=== PATIENT | female | born 1980 | race Caucasian/White ===

== ENCOUNTER 2020-09-21 21:45 | Inpatient (IN) | payer MEDICAID ==
[~2020-09-21] VITALS: Ht 165.1 cm; Wt 125.7 kg
--- NOTE | 2020-09-21 22:30 | NUR ---
Pt is a difficult stick. Multiple attempts made by 2 nurses to establish iv access. IV ultrasound being attempted at this time.
[2020-09-21 22:44] LABS: BASOPHILS % (AUTO) 0.9 % (0.0-2.0); EOSINOPHILS # (AUTO) 0.2 K/uL (0.0-0.7); EOSINOPHILS % (AUTO) 3.8 % (0.0-7.0); HEMATOCRIT 37.9 % (31.2-41.9); HEMOGLOBIN 12.4 g/dL (10.9-14.3); LYMPHOCYTES # (AUTO) 1.8 K/uL (20.0-40.0); LYMPHOCYTES % (AUTO) 32.4 % (20.5-51.5); MEAN CORPUSCULAR HEMOGLOBIN 29.1 uug (24.7-32.8); MEAN CORPUSCULAR HGB CONC 33 g/dL (32.3-35.6); MEAN CORPUSCULAR VOLUME 88.9 fL (75.5-95.3); MONOCYTES # (AUTO) 0.5 K/uL (2.0-10.0); MONOCYTES % (AUTO) 8.7 % (0.0-11.0); NEUTROPHILS % (AUTO) 54.2 % (38.5-71.5); PLATELET COUNT (AUTO) 273 K/uL (179-408); RED BLOOD CELL COUNT(AUTO) 4.27 MIL/uL (3.63-4.92); WHITE BLOOD COUNT (AUTO) 5.5 K/uL (3.8-11.8)
[2020-09-21 22:51] LABS: CREATININE 0.8 mg/dL (0.6-1.3); POTASSIUM 3.6 mmol/L (3.5-5.1)
--- NOTE | 2020-09-21 22:57 | NUR ---
Notified radiology that patient is now ready to receive x-ray.
[2020-09-21 23:03] LABS: BILIRUBIN,DIRECT 0.2 mg/dL (0.0-0.2); BILIRUBIN,TOTAL 0.4 mg/dL (0.2-1.0); TOTAL PROTEIN, SERUM 7.1 g/dL (6.4-8.2)
[2020-09-21] MEDS ORDERED: FUROSEMIDE 40 MG/4 ML VIAL IV ONE (23:15)
[2020-09-21] MEDS ORDERED: FUROSEMIDE 40 MG/4 ML VIAL ONE (23:21)
[2020-09-21] MEDS ORDERED: FUROSEMIDE 20 MG/2 ML VIAL ONE (23:21)
--- NOTE | 2020-09-21 23:40 | NUR ---
Pt sleeping at this time. resp even and unlabored. NO acute distress noted.
--- NOTE | 2020-09-22 | NUR ---
Pt's nasal swab for covid testing dropped off to lab at this time.
--- NOTE | 2020-09-22 00:06 | NUR ---
Pt is currently receiving ultrasound of lower extremities. Visitor that she refers to as "street mom" is present in room as well.
--- NOTE | 2020-09-22 00:50 | NUR ---
NOtified charge nurse that the plan is to admit patient per ER physician.
[2020-09-22] MEDS ORDERED: MORPHINE SULFATE 4 MG/1 ML DISP.SYRIN IV ONE (01:00)
[2020-09-22] MEDS ORDERED: FURO-152 PO (01:06)
--- NOTE | 2020-09-22 01:33 | NUR ---
Notified [facility] (admiting group) of panel call. callisthenics instructor provider Jagdish Rosa NP notified.
--- NOTE | 2020-09-22 01:36 | NUR ---
Pt voided x4 unmeasured urine output.
[2020-09-22] MEDS ORDERED: ONDANSETRON 4 MG/2 ML VIAL IV PRN ×2 (02:00→02:45)
[2020-09-22] MEDS ORDERED: MORPHINE SULFATE 2 MG/1 ML DISP.SYRIN IV PRN (02:00)
[2020-09-22] MEDS ORDERED: HYDROCODONE/APAP 5-325MG TABLET PO PRN ×2 (02:00→02:45)
[2020-09-22] MEDS ORDERED: MAGNESIUM HYDROXIDE 30 ML LIQUID UDC PO PRN ×2 (02:00→02:45)
[2020-09-22] MEDS ORDERED: ENOXAPARIN SODIUM 40 MG/0.4 ML DISP.SYRIN SQ SCH (02:00)
[2020-09-22] MEDS ORDERED: ACETAMINOPHEN 325 MG TABLET PO PRN (02:00)
--- NOTE | 2020-09-22 02:01 | NUR ---
Attempted to give report. NOtified that assigned nurse is on break and she will call back with in 15minutes to take report.
--- NOTE | 2020-09-22 02:18 | NUR ---
NOtified charge nurse MARKY Steven that patient states she has $800 but refuses to allow security to secure in safe. Pt desires to have it at bedside. Visualized envelope that has money but unwilling to allow nurses to verify amount.
--- NOTE | 2020-09-22 02:30 | NUR ---
report given to MARKY Mittal.
--- NOTE | 2020-09-22 03:00 | NUR ---
ADMITTED ON TELE FLOOR UNDER THE CARE JENARO HEEL SEAT FILLER. PATIENT ALERT ORIENTED, REFUSED TO ANSWER SOME OF THE QUESTION, EITHER TOO SLEEPY OR PRETEND TO BE ASLEEP. PATIENT HAS 2+ PITTING EDEMA OF THE LOWER EXTREMITIES, HAS MILD WHEEZING, AND RALES OF BOTH LUNGS. PATIENT HAS NO SOB NO CHEST PAIN , TELE NORMAL SINUS RHYTHM. CALL LIGHT WITHIN REACH.
[2020-09-22 03:35] VITALS: BP 146/58
[2020-09-22] MEDS: ENOXAPARIN SODIUM 40 MG/0.4 ML DISP.SYRIN SQ SCH ×2 (03:57→20:54)
[2020-09-22 06:34] LABS: BASOPHILS % (AUTO) 0.8 % (0.0-2.0); EOSINOPHILS # (AUTO) 0.3 K/uL (0.0-0.7); EOSINOPHILS % (AUTO) 5.3 % (0.0-7.0); HEMOGLOBIN 11.9 g/dL (10.9-14.3); LYMPHOCYTES # (AUTO) 1.8 K/uL (20.0-40.0); LYMPHOCYTES % (AUTO) 34.5 % (20.5-51.5); MEAN CORPUSCULAR HEMOGLOBIN 29.2 uug (24.7-32.8); MEAN CORPUSCULAR HGB CONC 33 g/dL (32.3-35.6); MEAN CORPUSCULAR VOLUME 88.3 fL (75.5-95.3); MONOCYTES # (AUTO) 0.6 K/uL (2.0-10.0); MONOCYTES % (AUTO) 10.5 % (0.0-11.0); NEUTROPHILS # (AUTO) 2.6 K/uL (1.8-8.9); NEUTROPHILS % (AUTO) 48.9 % (38.5-71.5); PLATELET COUNT (AUTO) 278 K/uL (179-408); RED BLOOD CELL COUNT(AUTO) 4.08 MIL/uL (3.63-4.92); WHITE BLOOD COUNT (AUTO) 5.3 K/uL (3.8-11.8)
[2020-09-22 06:45] LABS: BILIRUBIN,TOTAL 0.3 mg/dL (0.2-1.0); CREATININE 0.9 mg/dL (0.6-1.3); MAGNESIUM 2.1 mg/dL (1.8-2.4); PHOSPHOROUS 4.7 mg/dL (2.5-4.9); POTASSIUM 4.1 mmol/L (3.5-5.1); TOTAL PROTEIN, SERUM 6.5 g/dL (6.4-8.2)
[2020-09-22 06:51] LABS: THYROID STIMULATING HORMONE 2.045 mIU/mL (0.358-3.740)
--- NOTE | 2020-09-22 07:00 | NUR ---
PATIENT REFUSED TO SHOW HER VALUABLES, REFUSED TO SURRENDER TO KEPT VALUABLE TO THE SAFE. PATIENT PREFER TO KEPT HER 1 SMALL AND 1 LARGE BACKPACK.
--- NOTE | 2020-09-22 07:08 | NUR ---
PATIENT ASLEEP BUT EASILY AROUSABLE, NO SOB NO CHEST PAIN NOTED, OXYGEN SAT WNL. CONT TO MONITOR.
--- NOTE | 2020-09-22 07:30 | NUR ---
PATIENT AWAKE ALERT AND RESTING COMFORTABLY IN BED, NO SS OF PAIN OR DISTRESS. NOTED UPPER AND LOWER EXTREMITIESARE 4PLUS SWOLLEN. PATIENT ON LASIX 40 MG TID. PATIENT IS BRP. SR/ST ON MONITOR
[2020-09-22] MEDS: FUROSEMIDE 40 MG/4 ML VIAL IV SCH ×3 (08:24→17:38)
[2020-09-22] MEDS ORDERED: FUROSEMIDE 40 MG/4 ML VIAL IV SCH (09:00)
[2020-09-22 12:00] VITALS: BP 117/62
--- NOTE | 2020-09-22 13:00 | NUR ---
UNABLE TO GIVE LASIX ON DUE TIME PATIENT HL INFILTRATED. RESTARTED AND ATTEMPTED TWICE BUT TO NO AVAIL. AWAITING FOR MIDLINE INSERTION
[2020-09-22 16:06] VITALS: BP 123/69
--- NOTE | 2020-09-22 16:16 | NUR ---
NO ACUTE CHANGE SR/ST ON MONITOR
--- NOTE | 2020-09-22 17:49 | NUR ---
lasix given at [id number]
--- NOTE | 2020-09-22 19:00 | NUR ---
RECEIVED PT IN BED, APPEARS SLEEPING, NO ACUTE DISTRESS NOTED.JULIENNE LOWER AND UPPER EXTREMITIES EDEMATOUS, MIDLINE ON RIGHT UPPER ARM INTACT.
[2020-09-22 20:24] VITALS: BP 112/69
[2020-09-22] MEDS: MORPHINE SULFATE 2 MG/1 ML DISP.SYRIN IV PRN (20:58)
[2020-09-23 00:24] VITALS: BP 105/68
[2020-09-23] MEDS: MORPHINE SULFATE 2 MG/1 ML DISP.SYRIN IV PRN ×3 (02:08→20:47)
[2020-09-23 05:16] VITALS: BP 109/69
--- NOTE | 2020-09-23 06:17 | NUR ---
Pt in bed, asleep but easily arousable, no signs of respiratory distress. no pain or discomfort reported. Safety measures maintained at all times, call light within reach, all needs attended.
[2020-09-23 06:26] LABS: BASOPHILS # (AUTO) 0.1 K/uL (0.0-8.0); BASOPHILS % (AUTO) 1.2 % (0.0-2.0); EOSINOPHILS # (AUTO) 0.1 K/uL (0.0-0.7); EOSINOPHILS % (AUTO) 1.5 % (0.0-7.0); HEMATOCRIT 38.9 % (31.2-41.9); HEMOGLOBIN 12.8 g/dL (10.9-14.3); LYMPHOCYTES # (AUTO) 1.3 K/uL (20.0-40.0); LYMPHOCYTES % (AUTO) 16.9 % (20.5-51.5); MEAN CORPUSCULAR HGB CONC 33 g/dL (32.3-35.6); MEAN CORPUSCULAR VOLUME 88.2 fL (75.5-95.3); MONOCYTES # (AUTO) 0.6 K/uL (2.0-10.0); MONOCYTES % (AUTO) 7.1 % (0.0-11.0); NEUTROPHILS # (AUTO) 5.7 K/uL (1.8-8.9); NEUTROPHILS % (AUTO) 73.3 % (38.5-71.5); PLATELET COUNT (AUTO) 266 K/uL (179-408); RED BLOOD CELL COUNT(AUTO) 4.41 MIL/uL (3.63-4.92); WHITE BLOOD COUNT (AUTO) 7.8 K/uL (3.8-11.8)
[2020-09-23 06:44] LABS: CREATININE 0.8 mg/dL (0.6-1.3); MAGNESIUM 2.1 mg/dL (1.8-2.4); PHOSPHOROUS 3.4 mg/dL (2.5-4.9); POTASSIUM 4.5 mmol/L (3.5-5.1)
[2020-09-23 08:00] VITALS: BP 104/65
[2020-09-23] MEDS: FUROSEMIDE 40 MG/4 ML VIAL IV SCH ×3 (09:21→17:09)
[2020-09-23] MEDS: ACETAMINOPHEN 325 MG TABLET PO PRN ×2 (11:51→18:17)
[2020-09-23 12:00] VITALS: BP 103/46
--- NOTE | 2020-09-23 12:37 | NUR ---
Received patient in bed, alert and oriented x 4 , patient on room air saturating at 99%. No SOB noted. right upper arm midline intact. Assisted to the bathroom. All needs met in a timely manner. All due meds given as ordered. Patient complains that she is warm , temp is 98.6 cold compress given. Call light within reach. Seen by Dr. Duran with orders of BMP AND CBC.
[2020-09-23 14:00] VITALS: BP 102/51
--- NOTE | 2020-09-23 17:30 | NUR ---
Patient temp is 100.2 cold compress given and Tylenol given per MD order. After 45 mins temp is 99.3 . Patient stated I feel much better. Kept skin clean and dry.
--- NOTE | 2020-09-23 19:30 | NUR ---
RECEIVED PT AWAKE,ALERT AND ORIENTEDX4. PT IN NO ACUTE DISTRESS. IV INTACT. SAFETY AND COMFORT PROVIDED. WILL CONTINUE TO MONITOR.
--- NOTE | 2020-09-23 20:00 | NUR ---
COOLING MEASURES DONE TO PREVENT FEVER. PT COMPLAINING OF LEG PAIN.
[2020-09-23] MEDS: ENOXAPARIN SODIUM 40 MG/0.4 ML DISP.SYRIN SQ SCH (20:06)
[2020-09-23 20:14] VITALS: BP 129/82
--- NOTE | 2020-09-23 21:44 | NUR ---
MORPHINE PRN GIVEN FOR LEG PAIN. PT TOLERATED IT WELL. PT VITAL SIGNS STABLE. PT STATED HER PAIN SUBSIDED. WILL CONTINUE TO MONITOR.
[2020-09-24] MEDS: ACETAMINOPHEN 325 MG TABLET PO PRN ×3 (00:44→19:53)
[2020-09-24 00:53] VITALS: BP 107/75
[2020-09-24 05:16] VITALS: BP 104/62
--- NOTE | 2020-09-24 05:39 | NUR ---
PT SLEPT INTERMITTENTLY. PT IN NO ACUTE DISTRESS. IV INTACT. PRESCRIBED MEDICATION GIVEN AND PT TOLERATED IT WELL. AT 2046H MORPHINE SULFATE 2MGPRN WAS GIVEN TO PT FOR LEG PAIN. PT TOLERATED IT WELL. PT VITAL SIGNS STABLE. SAFETY AND COMFORT PROVIDED. WILL CONTINUE TO MONITOR.
[2020-09-24 06:03] LABS: BASOPHILS # (AUTO) 0.1 K/uL (0.0-8.0); BASOPHILS % (AUTO) 0.6 % (0.0-2.0); EOSINOPHILS % (AUTO) 0.2 % (0.0-7.0); HEMATOCRIT 42.4 % (31.2-41.9); HEMOGLOBIN 14.3 g/dL (10.9-14.3); LYMPHOCYTES # (AUTO) 1.3 K/uL (20.0-40.0); LYMPHOCYTES % (AUTO) 12.6 % (20.5-51.5); MEAN CORPUSCULAR HEMOGLOBIN 29.7 uug (24.7-32.8); MEAN CORPUSCULAR HGB CONC 34 g/dL (32.3-35.6); MEAN CORPUSCULAR VOLUME 88.2 fL (75.5-95.3); MONOCYTES # (AUTO) 0.5 K/uL (2.0-10.0); MONOCYTES % (AUTO) 5.3 % (0.0-11.0); NEUTROPHILS # (AUTO) 8.1 K/uL (1.8-8.9); NEUTROPHILS % (AUTO) 81.3 % (38.5-71.5); PLATELET COUNT (AUTO) 242 K/uL (179-408); RED BLOOD CELL COUNT(AUTO) 4.81 MIL/uL (3.63-4.92)
[2020-09-24 06:29] LABS: MAGNESIUM 2.3 mg/dL (1.8-2.4); PHOSPHOROUS 4.6 mg/dL (2.5-4.9); POTASSIUM 4.8 mmol/L (3.5-5.1)
[2020-09-24] MEDS: FUROSEMIDE 40 MG/4 ML VIAL IV SCH (08:06)
[2020-09-24] MEDS: MORPHINE SULFATE 2 MG/1 ML DISP.SYRIN IV PRN ×2 (08:12→20:19)
--- NOTE | 2020-09-24 09:29 | NUR ---
Patient temp is 100.7 cooling measures done, kept skin clean and dry, Tylenol given per MD order. No s/s of distress. Patient is pleasant and cooperative upon assessment. ROSARIO midline intact. Call light placed within reach. Patient on Room air saturating at 95%. Will continue to monitor.
--- NOTE | 2020-09-24 10:33 | NUR ---
Patient temp is 99.2 cooling measures still given. PT came to see the patient.
[2020-09-24 11:56] VITALS: BP 110/60
[2020-09-24] MEDS: VANCOMYCIN IV 1,500 MG in IV DEXTROSE 5% 500 ML IV SCH (15:23)
[2020-09-24 16:00] VITALS: BP 122/57
--- NOTE | 2020-09-24 16:08 | NUR ---
Industrial Aerial Installer Consultation Industrial Aerial Installer consultation completed for history of substance abuse. This INSECT CONTROL AIDE met with the patient in her hospital room. Patient is a 40 year old female who came to the ED on 09/22 with complaints of SOB. Admitting diagnosis is CHF. Patient is alert, oriented, receptive to meeting with this SW. Patient reports living with her boyfriend Tony and her friend Rosangela at [address] [place] [address]. Patient's phone number is [phone]. 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 Patient reports being independent with ADL's, however has the help and support of her boyfriend and friend, when needed. SW assessed patient's hx of substance abuse, and patient stated that she smokes 1/2-1 pack of cigarettes a day, had a history of methamphetamine use, however has not used for 6 months and attends NA groups. Patient reported that she also has a history of alcohol use, but stopped drinking 3 years ago. SW offered additional substance abuse resources but patient declined them stated that she feels NA is sufficient and helpful. SW assessed additional psychosocial needs, and patient discussed having several losses over the past year, including her parents and grandparents. Patient became tearful. SW provided supportive counseling and offered to provide counseling resources. Patient was receptive. Patient also asked for information on a PCP, and SW referred patient to her insurance plan [employer] to inquire about contracted PCP's. Patient expressed understanding and stated she would call the insurance plan. Discharge plans discussed, and patient stated that she would be returning home. Patient stated that her friend Rosangela would be picking her up from the hospital. SW provided patient with the following resources: [facility] [address] [address] [facility] [address] [address], [address]nd [place] [address] [facility] [address] [place] [address] [facility], [facility]. [address] [place] [address] Call: [phone]
--- NOTE | 2020-09-24 16:41 | NUR ---
Vancomycin started per Dr. Blanc. Patient's temp is 99.4
--- NOTE | 2020-09-24 19:30 | NUR ---
RECEIVED PT IN NO ACUTE DISTRESS. IV INTACT. SAFETY AND COMFORT PROVIDED. WILL CONTINUE TO MONITOR.
--- NOTE | 2020-09-24 19:31 | NUR ---
PT TEMP 99.2 COOLING MEASURES STILL GIVEN. PT IN NO ACUTE DISTRESS. WILL CONTINUE TO MONITOR. Addendum: 09/24/20 at 1999 by SYDNEY VARGAS RN PT TEMP 99.6 TEMP. COOLING MEASURES GIVEN. TYLENOL PRN GIVEN.WILL CONTINUE TO MONITOR.
[2020-09-24] MEDS: ENOXAPARIN SODIUM 40 MG/0.4 ML DISP.SYRIN SQ SCH (20:07)
[2020-09-24 20:09] VITALS: BP 126/72
[2020-09-25 00:06] VITALS: BP 103/62
[2020-09-25] MEDS: VANCOMYCIN IV 1,500 MG in IV DEXTROSE 5% 500 ML IV SCH ×2 (03:00→03:21)
--- NOTE | 2020-09-25 03:39 | NUR ---
Notify technology infusion specialist that pt accidentally pulled out her iv and pt refused reinsertion. Notify that pt also want to be discharge later for court hearing. Pt in no acute distress. Explained to the pt the pros and cons of having iv access. Pt understand but refused reinsertion of iv. Pt also refused Iv vancocin. Will continue to monitor.
[2020-09-25 04:09] VITALS: BP 119/72
--- NOTE | 2020-09-25 05:56 | NUR ---
Pt slept intermittently. Pt in no acute distress. Pt had no iv. aware . Pt vital signs stable. Pt wanting to be discharge today. Safety and comfort provided. All needs are met . Will endorse to incoming nurse for continuity of care.
--- NOTE | 2020-09-25 07:30 | NUR ---
Patient received in bed awake, alert and oriented times 4. No sign of distress noted. Pt is on room air. Pt is asking to go home today, she reports that she has a court date tomorrow. Will make MD aware. Safety precautions are in place. Will continue to monitor.
[2020-09-25] MEDS ORDERED: FUROSEMIDE 40 MG TABLET PO SCH (09:00)
[2020-09-25] MEDS ORDERED: FURO40TA5 PO (09:52)
[2020-09-25] MEDS ORDERED: SULF1TAB48 PO (09:52)
[2020-09-25 11:44] VITALS: BP 137/79
--- NOTE | 2020-09-25 12:00 | NUR ---
Patient discharge to home. Belongings list completed and signed. All belongings, prescriptions and valuables given back to patient. Paperwork signed and copy given to patient. Medications given as ordered. ID band removed , pt had no IV access on discharge. Patient teaching completed.
== END 2020-09-25 12:00 | disposition home or self-care (01) | DRG 194 ==
LOC: ER 21:56 → TELE3 09-22 02:51
PROVIDERS: ATTEND Nurse Practitioner Acute Care
PROC: 05H533Z Insertion of Infusion Device into Right Subclavian Vein, Percutaneous Approach (ICD-10-PCS; principal; 2020-09-22)
PROC: B546ZZA Ultrasonography of Right Subclavian Vein, Guidance (ICD-10-PCS; principal; 2020-09-22)
DX: I50.31 Acute diastolic (congestive) heart failure (principal); L03.115 Cellulitis of right lower limb; E66.01 Morbid (severe) obesity due to excess calories; E44.0 Moderate protein-calorie malnutrition; Z68.42 Body mass index [BMI] 45.0-49.9, adult; L03.116 Cellulitis of left lower limb; I42.8 Other cardiomyopathies; F17.210 Nicotine dependence, cigarettes, uncomplicated; Z20.822 Contact with and (suspected) exposure to COVID-19; Z87.442 Personal history of urinary calculi; F19.10 Other psychoactive substance abuse, uncomplicated; R74.01 Elevation of levels of liver transaminase levels
CPT/HCPCS: 36415; 70030-TC; 71045; 83735; 84100; 84443; 85025; 93005; 93307; A4663; G0378; J1650; J1940; J2270; J3370; J7060